=== PATIENT | female | born 2000 | race African-American/Black ===

== ENCOUNTER 2022-02-01 11:25 | Outpatient (CLI) | payer BC | END 2022-02-01 11:26 | disposition home or self-care (01) | LOC: CSHRAD 11:25 | PROVIDERS: ATTEND Family Medicine | DX: M54.2 Cervicalgia (principal); M25.511 Pain in right shoulder; M25.512 Pain in left shoulder; S43.112A Subluxation of left acromioclavicular joint, initial encounter; S49.91XA Unspecified injury of right shoulder and upper arm, initial encounter | CPT/HCPCS: 72040; 72070 ==